=== PATIENT | male | born 2000 | race Caucasian/White ===

== ENCOUNTER 2023-01-08 11:24 | Emergency (ER) | payer SELFPAY ==
[2023-01-08 11:28] VITALS: BP 128/89; PULSE 87; RESP 20; TEMP 36.8; O2SAT 96; BMI 22.4
--- NOTE | 2023-01-08 11:56 | XR_ITS ---
FINAL REPORT CLINICAL HISTORY: Chainsaw injury, rule out foreign body proximally right forearm COMPARISON: None FINDINGS: 2 views of the left forearm were obtained. There is no acute fracture or dislocation. The joints are intact. There is a transverse soft tissue laceration of the right forearm. No underlying radiopaque foreign body identified. IMPRESSION: Soft tissue laceration without acute osseous abnormality. No radiopaque foreign body. Reviewed, Interpreted and Dictated by Daniel Pool MD Transcribed by Obdulia Samuels Authenticated and [facility]
--- NOTE | 2023-01-08 12:19 | HMH.EDGENADL ---
Discharge Plan Disposition Patient Disposition: Home, Self-Care Prescriptions Prescriptions: New cephalexin 500 mg capsule 1,000 mg PO BID 7 Days Qty: 28 0RF Referrals Follow up/Referrals: Provider,Referral, MD [Primary Care Provider] - See instructions Activity Restrictions/Add. Instructions Additional Instructions/Restrictions: Call your family doctor to establish care for this visit to the emergency department and schedule follow-up within 48 hours to ensure improvement. If you have any worsening of your condition or any other concerning signs or symptoms, return to the emergency department or your primary care doctor for further evaluation. Clinical Impressions Clinical Impression: Laceration Instructions Patient Instructions: DI for Laceration Repair Discharge ED Provider: Ian Calvert General Adult HPI General Chief complaint: Wound/Laceration Stated complaint: AO01/08, lac on Rt arm Time Seen by Provider: 01/08/23 11:30 Mode of Arrival: Ambulatory Source of Information: Patient Limitations: No Limitations Description of Symptoms (Recalled from ER Triage Doc. by RN): pt to ed c/o right forearm laceration. pt states he accidentally cut himself with a chainsaw. bleeding controlled on arrival to ed. History of Present Illness HPI narrative: 22-year-old male presenting with laceration right arm. Patient states he was using a chainsaw andCut proximal right forearm. This happened about an hour prior to arrival. Patient states this for arrival he was using a chainsaw, cut his right proximal forearm, did not sustain any other trauma. Able to move and feel everything. Last tetanus shot was over 5 years ago. Hemostatic on arrival Related Data Previous Rx's Medication Instructions Recorded cephalexin 500 mg capsule 1,000 mg PO BID 7 days #28 caps 01/08/23 Allergies Allergy/AdvReac Type Severity Reaction Status Date / Time No Known Allergies Allergy Verified 01/08/23 12:17 [facility] Disclaimer: The information contained in this section may have been updated after the patient was seen, as this information can be updated by other users. Social History Smoking Status: Never smoker alcohol intake: never current occupational status: employed Travel in the last 8 weeks: None ROS Obtained: Yes All systems reviewed & no additional complaints except as documented Physical Exam General General appearance: alert and in no apparent distress Head Head exam: atraumatic and normocephalic Eye Eye exam: Present normal appearance, PERRL and EOMI ENT ENT exam: Present mucous membranes moist Neck Neck exam: Present normal inspection, full ROM and trachea midline Respiratory Respiratory exam: Present normal lung sounds bilaterally; Absent respiratory distress, wheezes, stridor, accessory muscle use or prolonged expiratory phase Cardiovascular Cardiovascular exam: Present normal rhythm Abdominal Exam Abdominal exam: Present soft; Absent distention, tenderness, guarding, rebound, rigidity or normal bowel sounds Extremities Exam Extremities exam: Present tenderness and other (4 cm laceration ventral aspect right proximal forearm. Neurovascularly intact distally. No evidence of gross contamination); Absent edema Neurological Exam Neurological exam: Present alert, oriented X3, CN II-XII intact and normal gait; Absent motor sensory deficit Skin Skin exam: Present warm and dry; Absent diaphoresis or erythema Medical Decision Making Medical Records Medical records reviewed: Yes I reviewed the patient's medical records. Roger Inquiry Pt receiving controlled substance: No Roger was queried for this patient: No Vital Signs: 01/08/23 11:28 01/08/23 12:20 Temperature 98.2 F Temperature Source Oral Pulse Rate 56 L Pulse Rate [Left Radial] 87 Respiratory Rate 20 Blood Pressure 116/73 Blood Pressure [Right Arm] 128/89 Blood Pressure Mean 84 Blood Pressure Mean [Right Arm] 102 02
[2023-01-08 12:20] VITALS: BP 116/73; PULSE 56; O2SAT 100
[2023-01-08 13:17] VITALS: BP 116/73; PULSE 87; RESP 20; TEMP 36.7
== END 2023-01-08 13:17 | disposition home or self-care (01) ==
PROVIDERS: Emergency Provider Emergency Medicine
DX: S51.811A Laceration without foreign body of right forearm, initial encounter (principal); W29.3XXA Contact with powered garden and outdoor hand tools and machinery, initial encounter; Z23 Encounter for immunization
CPT/HCPCS: 73090; 90471; 90715; 99283